=== PATIENT | male | born 1965 | race Caucasian/White ===

== ENCOUNTER → 2017-02-21 | Outpatient (CLI) | payer BC, OTHER ==
[~2017-02-21] MED LIST: CYCL-259 PO; PREG100C PO; THYR97.5 PO
[2017-02-21 09:59] LABS: HEMATOCRIT 53.4 % (39.2-51.8); HEMOGLOBIN 18.5 g/dL (13.7-18.0); WHITE BLOOD COUNT 4.8 x10^3/uL (3.4-10)
[2017-02-21 10:10] LABS: BLOOD UREA NITROGEN 17 mg/dL (7-18)
== END | disposition home or self-care (01) ==
LOC: STAR 08:44
PROVIDERS: ATTEND Neurological Surgery
DX: Z01.818 Encounter for other preprocedural examination (principal); M41.86 Other forms of scoliosis, lumbar region; M51.36 Other intervertebral disc degeneration, lumbar region; R79.1 Abnormal coagulation profile
CPT/HCPCS: 36415; 71020; 72114; 80048; 85025; 85610; 85730; 93005

== ENCOUNTER 2017-03-08 07:12 | Inpatient (IN) | payer BC, OTHER ==
[~2017-03-08] VITALS: Ht 177.8 cm; Wt 114.6 kg
[~2017-03-08 07:12] MED LIST changes: +BACITRACIN 50,000 UNIT ONE; +BUPIVACAINE/PF 0.5% ONE; +EPINEPHRINE 1 MG/ML, 1ML ONE; +THROMBIN 20,000 UNIT VIAL TP ONE
[2017-03-08 08:29] VITALS: BP 152/92
[2017-03-08] MEDS ORDERED: LACTATED RINGERS 1,000 ML IV SCH (08:33)
[2017-03-08] MEDS ORDERED: MIDAZOLAM 1 MG/ML, 2ML ONE (09:56)
[2017-03-08] MEDS ORDERED: FENTANYL PF 100 MCG/2ML ONE ×4 (09:56→13:07)
[2017-03-08] MEDS ORDERED: DEXAMETHASONE 4 MG/ML, 1ML ONE (11:01)
[2017-03-08] MEDS ORDERED: ONDANSETRON 2MG/ML, 2ML ONE (11:01)
[2017-03-08] MEDS ORDERED: PROPOFOL 10 MG/ML, 20ML ONE ×6 (11:01→12:35)
[2017-03-08] MEDS ORDERED: SUCCINYLCHOLINE 20 MG/ML, 10ML ONE (11:01)
[2017-03-08] MEDS ORDERED: CEFAZOLIN 1,000 MG ONE ×2 (11:01→12:34)
[2017-03-08] MEDS ORDERED: hydrALAzine 20 MG/ML, 1ML IV PRN (12:00)
[2017-03-08] MEDS ORDERED: ACETAMINOPHEN 325 MG TABLET PO PRN (12:00)
[2017-03-08] MEDS ORDERED: METOPROLOL 1 MG/ML, 5ML IV PRN (12:00)
[2017-03-08] MEDS ORDERED: MEPERIDINE/PF 25MG/0.5ML IVPush PRN (12:00)
[2017-03-08] MEDS ORDERED: ALBUTEROL SULFATE 2.5 MG/3 ML NPPB PRN (12:00)
[2017-03-08] MEDS ORDERED: PROMETHAZINE 25 MG/ML, 1ML IV PRN (12:00)
[2017-03-08] MEDS ORDERED: OXYcodone 5 MG/5 ML ORAL.SOL UDC PO PRN (12:00)
[2017-03-08] MEDS ORDERED: MIDAZOLAM 1 MG/ML, 2ML IV PRN (12:00)
[2017-03-08] MEDS ORDERED: EPHEDRINE 50 MG/ML, 1ML ONE (12:02)
[2017-03-08] MEDS ORDERED: BACITRACIN OINT 500U/GM, 15 GM ONE (12:09)
[2017-03-08] MEDS ORDERED: HYDROmorphone 1 MG/ML, 1ML ONE (13:07)
[2017-03-08] MEDS ORDERED: OXYcodone 5 MG/5 ML ORAL.SOL UDC ONE (13:07)
[2017-03-08] MEDS ORDERED: ACETAMINOPHEN 650 MG/20.3 ML UDC ONE (13:07)
[2017-03-08] MEDS: FENTANYL PF 100 MCG/2ML IV PRN ×2 (13:10→13:34)
[2017-03-08] MEDS: HYDROmorphone 1 MG/ML, 1ML IV PRN ×2 (13:16→13:22)
[2017-03-08 15:00] VITALS: BP 122/87
[2017-03-08] MEDS ORDERED: morphine SULFATE 10 MG/ML, 1ML IV PRN (15:00)
[2017-03-08] MEDS ORDERED: DIPHENHYDRAMINE 50 MG CAPSULE PO PRN (15:00)
[2017-03-08] MEDS ORDERED: BISACODYL 10 MG SUPP PR PRN (15:00)
[2017-03-08] MEDS ORDERED: METHOCARBAMOL 750 MG TABLET PO PRN (15:00)
[2017-03-08] MEDS ORDERED: PROMETHAZINE 25 MG/ML, 1ML IM PRN (15:00)
[2017-03-08] MEDS ORDERED: MAGNESIUM HYDROXIDE 8%, 30ML UDC PO PRN (15:00)
[2017-03-08] MEDS ORDERED: OXYcodone/APAP 7.5/325MG TABLET PO PRN (15:00)
[2017-03-08] MEDS ORDERED: DIPHENHYDRAMINE 50 MG/ML, 1ML IVPush PRN (15:00)
[2017-03-08] MEDS ORDERED: DIPHENHYDRAMINE 50 MG/ML, 1ML IM PRN (15:00)
[2017-03-08] MEDS ORDERED: ONDANSETRON 2MG/ML, 2ML IV PRN (15:00)
[2017-03-08] MEDS ORDERED: CYCLOBENZAPRINE 10 MG TABLET PO PRN (15:00)
[2017-03-08] MEDS ORDERED: LABETALOL 5MG/ML, 20ML IV PRN (15:00)
[2017-03-08] MEDS ORDERED: HYDROcodone/APAP 5/325 TABLET PO PRN (15:00)
[2017-03-08] MEDS: HYDROcodone/APAP 10/325 MG TABLET PO PRN ×2 (15:12→21:02)
[2017-03-08] MEDS: NS + 20MEQ KCL 1,000 ML IV SCH (15:52)
[2017-03-08] MEDS: PREGABALIN 100 MG CAPSULE PO SCH ×2 (15:52→21:02)
[2017-03-08] MEDS: CEFAZOLIN PMX 1GM/50ML 50 ML IVPB SCH (15:52)
[2017-03-08 19:40] VITALS: BP 114/66
[2017-03-08 23:14] VITALS: BP 114/71
[2017-03-09] MEDS: CEFAZOLIN PMX 1GM/50ML 50 ML IVPB SCH (00:03)
[2017-03-09] MEDS: HYDROcodone/APAP 10/325 MG TABLET PO PRN ×2 (01:12→08:22)
[2017-03-09 04:10] VITALS: BP 101/63
[2017-03-09] MEDS: NS + 20MEQ KCL 1,000 ML IV SCH (05:35)
[2017-03-09] MEDS: THYROID 30 MG TABLET PO SCH ×2 (05:35→05:43)
[2017-03-09] MEDS ORDERED: THYR180T PO (05:47)
[2017-03-09] MEDS ORDERED: SENN1TAB7 PO (05:48)
[2017-03-09] MEDS ORDERED: METH750T87 PO (05:49)
[2017-03-09 07:44] VITALS: BP 120/68
[2017-03-09] MEDS: PREGABALIN 100 MG CAPSULE PO SCH (08:22)
[2017-03-09] MEDS ORDERED: SENNA/DOCUSATE TABLET PO SCH (09:00)
[2017-03-09] MEDS ORDERED: HYDR-3307 PO (12:54)
== END 2017-03-09 13:13 | disposition home or self-care (01) | DRG 517 ==
LOC: ORIP 07:12 → 4NOR 14:37
PROVIDERS: ADMIT Neurological Surgery; ATTEND Neurological Surgery
PROC: 4A11X4G Monitoring of Peripheral Nervous Electrical Activity, Intraoperative, External Approach (ICD-10-PCS; 2017-03-08)
PROC: 01NR0ZZ Release Sacral Nerve, Open Approach (ICD-10-PCS; 2017-03-08)
PROC: 01NB0ZZ Release Lumbar Nerve, Open Approach (ICD-10-PCS; principal; 2017-03-08 10:30)
DX: M48.061 Spinal stenosis, lumbar region without neurogenic claudication (principal); M54.17 Radiculopathy, lumbosacral region; M48.07 Spinal stenosis, lumbosacral region
CPT/HCPCS: 72100; J0171; J0690; J1100; J1170; J2250; J2405; J2704; J3010; J3480; J3490; J0330; J7120